=== PATIENT | female | born 1975 | race American Indian/Alaskan Native ===

== ENCOUNTER 2017-07-10 22:25 | Inpatient (IN) | payer OTHER ==
[2017-07-11 00:55] LABS: Basophils % (Auto) 0.6 % (0.0-1.8); Eosinophils % (Auto) 5.8 % (0.0-4.3); Hematocrit 30.9 % (30.3-42.9); Hemoglobin 9.8 gm/dl (10.1-14.3); Mean Corpuscular HGB Conc 32 % (30-34); Mean Corpuscular Volume 78 fl (79-97); Platelet Count 350 K/mm3 (140-440); Red Blood Count 3.94 M/mm3 (3.65-5.03); Red Cell Distribution Width 18.6 % (13.2-15.2); White Blood Count 7.6 K/mm3 (4.5-11.0)
[2017-07-11 01:01] LABS: Alanine Aminotransferase 13 units/L (7-56); Albumin 3.9 g/dL (3.9-5); Albumin/Globulin Ratio 1.3 %; Alkaline Phosphatase 73 units/L (35-129); Anion Gap 18 mmol/L; Blood Urea Nitrogen 8 mg/dL (7-17); Calcium 8.7 mg/dL (8.4-10.2); Carbon Dioxide 22 mmol/L (22-30); Chloride 104.4 mmol/L (98-107); Glucose 92 mg/dL (65-100); Sodium 140 mmol/L (137-145); Total Protein 6.9 g/dL (6.3-8.2)
[2017-07-11 01:02] LABS: Mean Corpuscular Hemoglobin 25 pg (28-32)
[2017-07-11 01:33] LABS: INR 0.94 (0.87-1.13)
[2017-07-11 02:02] LABS: Bacteria,Urine 1+ /HPF (Negative); Bilirubin,Urine NEG (Negative); Blood,Urine NEG (Negative); Ketones,Urine NEG (Negative); Leukocyte Esterase,Urine MOD (Negative); Mucus,Urine FEW /HPF; Nitrite,Urine NEG (Negative); Protein,Urine <15 mg/dL mg/dL (Negative)
--- NOTE | 2017-07-11 05:02 | Emergency Department Report ---
- General Chief complaint: Skin Rash Stated complaint: BODY RASH Time Seen by Provider: 07/11/17 04:17 Source: patient Mode of arrival: Ambulatory Limitations: No Limitations - History of Present Illness Initial comments: Patient here reports that he has a rash all over and was seen at [facility] 2 days ago and he gave him Bactrim but he has not taken Bactrim yet. He said he thinks the rash is from bug bites. Denies any difficulty breathing or shortness of breath. Denies any difficulty swallowing, wheezing or stridor. Denies any cough pain to rash side is 2 out of 10. He said the bottoms of his feet are turning purple and painful with some swelling. Patient said he is medical history syncope and anemia. Pt denies taking any medication that is new or using any new detergent. He said he was treated for cellulitis and allergic reaction at [facility] 2 days ago but he did not start taking medication. Said areas were erythema but now his skin is sloughing. Pt denies any fever or chills. MD complaint: rash, discoloration Onset/Timin -: days(s) Tetanus Up to Date: yes Location: generalized Severity: mild Severity scale (0 -10): 2 Quality: aching Consistency: constant Improves with: rest Worsens with: palpation, movement Context: witnessed insect bite Associated symptoms: athralgias Treatments Prior to Arrival: none - Related Data Allergies Allergy/AdvReac Type Severity Reaction Status Date / Time No Known Allergies Allergy Verified 07/10/17 23:36 Abscess Boil HPI - HPI Chief Complaint: Skin Rash Stated Complaint: BODY RASH Time Seen by Provider: 07/11/17 04:17 Allergies/Adverse Reactions: Allergies Allergy/AdvReac Type Severity Reaction Status Date / Time No Known Allergies Allergy Verified 07/10/17 23:36 ED Review of Systems ROS: Stated complaint: BODY RASH Other details as noted in HPI Comment: All other systems reviewed and negative Constitutional: denies: chills, fever, weakness Eyes: denies: vision change ENT: denies: throat pain, congestion Respiratory: no symptoms reported Cardiovascular: denies: chest pain, palpitations, edema, syncope Gastrointestinal: denies: abdominal pain, nausea, vomiting, diarrhea Musculoskeletal: joint swelling, arthralgia. denies: back pain, myalgia Skin: rash, pruritus Neurological: other (dizziness). denies: headache, numbness, paresthesias, confusion ED Past Medical Hx - Past Medical History Previous Medical History?: Yes Additional medical history: Syncope. Anemia - Surgical History Past Surgical History?: Yes Additional Surgical History: Left Shoulder Replacement - Family History Family history: hypertension - Social History Smoking Status: Current Every Day Smoker Substance Use Type: None ED Physical Exam - General Limitations: No Limitations General appearance: alert, in no apparent distress - Head Head exam: Present: atraumatic, normocephalic, normal inspection - Eye Eye exam: Present: normal appearance, PERRL, EOMI. Absent: periorbital swelling , periorbital tenderness Pupils: Present: normal accommodation - ENT ENT exam: Present: normal exam, normal orophraynx, mucous membranes moist, TM's normal bilaterally, normal external ear exam - Neck Neck exam: Present: normal inspection, full ROM. Absent: tenderness, meningismus, lymphadenopathy, thyromegaly - Respiratory Respiratory exam: Present: normal lung sounds bilaterally. Absent: respiratory distress, wheezes, stridor, chest wall tenderness, accessory muscle use - Cardiovascular Cardiovascular Exam: Present: regular rate, normal rhythm, normal heart sounds. Absent: systolic murmur, diastolic murmur - GI/Abdominal GI/Abdominal exam: Present: soft, normal bowel sounds. Absent: distended, tenderness, guarding, rebound, rigid - Extremities Exam Extremities exam: Present: full ROM, tenderness (both feet and upper extremity) , normal capillary refill, pedal edema, other (discolored and some areas purple some area erythema. Dorsal aspect of feet with mild swelling and tenderness. Pulses are 2+.). Absent: normal inspection, joint swelling, calf tenderness - Back Exam Back exam: Present: normal inspection, full ROM, rash noted. Absent: tenderness , CVA tenderness (R), CVA tenderness (L), muscle spasm, paraspinal tenderness, vertebral tenderness - Neurological Exam Neurological exam: Present: alert, oriented X3, normal gait, reflexes normal. Absent: motor sensory deficit - Psychiatric Psychiatric exam: Present: normal affect, normal mood - Skin Skin exam: Present: warm, rash, erythema. Absent: intact, normal color - Expanded Skin Exam Expanded Distribution of rash: generalized, other (both feet are discolored purple and redness. Tender to palpate plantar aspect.) Description of rash: Present: tenderness, erythematous, crusting, other ( patient with generalized rash mostly on his bilateral upper extremity but sparsely scattered to his lower extremity and torso. Rash is shedding. Areas are erythema with tenderness to palpate). Absent: discharge, fluctuant, indurated ED Course Vital Signs 07/11/17 00:43 Temperature 98.6 F Pulse Rate 88 Respiratory 18 Rate Blood Pressure 129/72 [Right] O2 Sat by Pulse 100 Oximetry - Reevaluation(s) Reevaluation #1: 07/11/17 05:[address] Miller attending physician in ED and he evaluated patient. Spoke with Dr. Mendiola who is the hospitalist and she will see the patient and determine if patient needs to be admitted Reevaluation #2: 07/11/17 05:[address] Mendiola. ED Medical Decision Making - Lab Data Result diagrams: 07/11/17 00:15 07/11/17 00:15 Lab Results 07/10/17 07/11/17 07/11/17 Range/Units Unknown 00:15 00:15 WBC 7.6 (4.5-11.0) K/mm3 RBC 3.94 (3.65-5.03) M/mm3 Hgb 9.8 L (10.1-14.3) gm/dl Hct 30.9 (30.3-42.9) % MCV 78 L (79-97) fl MCH 25 L (28-32) pg MCHC 32 (30-34) % RDW 18.6 H (13.2-15.2) % Plt Count 350 (140-440) K/mm3 Lymph % (Auto) 30.3 (13.4-35.0) % Lynn % (Auto) 9.6 H (0.0-7.3) % Eos % (Auto) 5.8 H (0.0-4.3) % Baso % (Auto) 0.6 (0.0-1.8) % Lymph # 2.3 (1.2-5.4) K/mm3 Lynn # 0.7 (0.0-0.8) K/mm3 Eos # 0.4 (0.0-0.4) K/mm3 Baso # 0.0 (0.0-0.1) K/mm3 Seg Neutrophils % 53.7 (40.0-70.0) % Seg Neutrophils # 4.1 (1.8-7.7) K/mm3 PT 12.5 (12.2-14.9) Sec. INR 0.94 (0.87-1.13) VBG pH (7.320-7.420) Sodium (137-145) mmol/L Potassium (3.6-5.0) mmol/L Chloride (98-107) mmol/L Carbon Dioxide (22-30) mmol/L Anion Gap mmol/L BUN (7-17) mg/dL Creatinine (0.7-1.2) mg/dL Estimated GFR ml/min BUN/Creatinine Ratio % Glucose (65-100) mg/dL Lactic Acid (0.7-2.0) mmol/L Calcium (8.4-10.2) mg/dL Total Bilirubin (0.1-1.2) mg/dL AST (5-40) units/L ALT (7-56) units/L Alkaline Phosphatase (35-129) units/L Total Protein (6.3-8.2) g/dL Albumin (3.9-5) g/dL Albumin/Globulin Ratio % HCG, Qual (Negative) Urine Color Yellow (Yellow) Urine Turbidity Clear (Clear) Urine pH 6.0 (5.0-7.0) Ur Specific [place] 1.023 (1.003-1.030) Urine Protein <15 mg/dl (Negative) mg/dL Urine Glucose (UA) Neg (Negative) mg/dL Urine Ketones Neg (Negative) mg/dL Urine Blood Neg (Negative) Urine Nitrite Neg (Negative) Urine Bilirubin Neg (Negative) Urine Urobilinogen 2.0 (<2.0) mg/dL Ur Leukocyte Esterase Mod (Negative) Urine WBC (Auto) 42.0 H (0.0-6.0) /HPF Urine RBC (Auto) 4.0 (0.0-6.0) /HPF U Epithel Cells (Auto) < 1.0 (0-13.0) /HPF Urine Bacteria (Auto) 1+ (Negative) /HPF Urine Mucus Few /HPF 07/11/17 07/11/17 07/11/17 Range/Units 00:15 00:15 00:15 WBC (4.5-11.0) K/mm3 RBC (3.65-5.03) M/mm3 Hgb (10.1-14.3) gm/dl Hct (30.3-42.9) % MCV (79-97) fl MCH (28-32) pg MCHC (30-34) % RDW (13.2-15.2) % Plt Count (140-440) K/mm3 Lymph % (Auto) (13.4-35.0) % Lynn % (Auto) (0.0-7.3) % Eos % (Auto) (0.0-4.3) % Baso % (Auto) (0.0-1.8) % Lymph # (1.2-5.4) K/mm3 Lynn # (0.0-0.8) K/mm3 Eos # (0.0-0.4) K/mm3 Baso # (0.0-0.1) K/mm3 Seg Neutrophils % (40.0-70.0) % Seg Neutrophils # (1.8-7.7) K/mm3 PT (12.2-14.9) Sec. INR (0.87-1.13) VBG pH (7.320-7.420) Sodium 140 (137-145) mmol/L Potassium 4.0 (3.6-5.0) mmol/L Chloride 104.4 (98-107) mmol/L Carbon Dioxide 22 (22-30) mmol/L Anion Gap 18 mmol/L BUN 8 (7-17) mg/dL Creatinine 0.5 L (0.7-1.2) mg/dL Estimated GFR > 60 ml/min BUN/Creatinine Ratio 16.00 % Glucose 92 (65-100) mg/dL Lactic Acid 1.00 (0.7-2.0) mmol/L Calcium 8.7 (8.4-10.2) mg/dL Total Bilirubin 0.20 (0.1-1.2) mg/dL AST 14 (5-40) units/L ALT 13 (7-56) units/L Alkaline Phosphatase 73 (35-129) units/L Total Protein 6.9 (6.3-8.2) g/dL Albumin 3.9 (3.9-5) g/dL Albumin/Globulin Ratio 1.3 % HCG, Qual Negative (Negative) Urine Color (Yellow) Urine Turbidity (Clear) Urine pH (5.0-7.0) Ur Specific [place] (1.003-1.030) Urine Protein (Negative) mg/dL Urine Glucose (UA) (Negative) mg/dL Urine Ketones (Negative) mg/dL Urine Blood (Negative) Urine Nitrite (Negative) Urine Bilirubin (Negative) Urine Urobilinogen (<2.0) mg/dL Ur Leukocyte Esterase (Negative) Urine WBC (Auto) (0.0-6.0) /HPF Urine RBC (Auto) (0.0-6.0) /HPF U Epithel Cells (Auto) (0-13.0) /HPF Urine Bacteria (Auto) (Negative) /HPF Urine Mucus /HPF 07/11/17 Range/Units 00:15 WBC (4.5-11.0) K/mm3 RBC (3.65-5.03) M/mm3 Hgb (10.1-14.3) gm/dl Hct (30.3-42.9) % MCV (79-97) fl MCH (28-32) pg MCHC (30-34) % RDW (13.2-15.2) % Plt Count (140-440) K/mm3 Lymph % (Auto) (13.4-35.0) % Lynn % (Auto) (0.0-7.3) % Eos % (Auto) (0.0-4.3) % Baso % (Auto) (0.0-1.8) % Lymph # (1.2-5.4) K/mm3 Lynn # (0.0-0.8) K/mm3 Eos # (0.0-0.4) K/mm3 Baso # (0.0-0.1) K/mm3 Seg Neutrophils % (40.0-70.0) % Seg Neutrophils # (1.8-7.7) K/mm3 PT (12.2-14.9) Sec. INR (0.87-1.13) VBG pH 7.403 (7.320-7.420) Sodium (137-145) mmol/L Potassium (3.6-5.0) mmol/L Chloride (98-107) mmol/L Carbon Dioxide (22-30) mmol/L Anion Gap mmol/L BUN (7-17) mg/dL Creatinine (0.7-1.2) mg/dL Estimated GFR ml/min BUN/Creatinine Ratio % Glucose (65-100) mg/dL Lactic Acid (0.7-2.0) mmol/L Calcium (8.4-10.2) mg/dL Total Bilirubin (0.1-1.2) mg/dL AST (5-40) units/L ALT (7-56) units/L Alkaline Phosphatase (35-129) units/L Total Protein (6.3-8.2) g/dL Albumin (3.9-5) g/dL Albumin/Globulin Ratio % HCG, Qual (Negative) Urine Color (Yellow) Urine Turbidity (Clear) Urine pH (5.0-7.0) Ur Specific [place] (1.003-1.030) Urine Protein (Negative) mg/dL Urine Glucose (UA) (Negative) mg/dL Urine Ketones (Negative) mg/dL Urine Blood (Negative) Urine Nitrite (Negative) Urine Bilirubin (Negative) Urine Urobilinogen (<2.0) mg/dL Ur Leukocyte Esterase (Negative) Urine WBC (Auto) (0.0-6.0) /HPF Urine RBC (Auto) (0.0-6.0) /HPF U Epithel Cells (Auto) (0-13.0) /HPF Urine Bacteria (Auto) (Negative) /HPF Urine Mucus /HPF Urine culture pending Critical care attestation.: If time is entered above; I have spent that time in minutes in the direct care of this critically ill patient, excluding procedure time. ED Disposition Clinical Impression: Cellulitis of skin, Arthralgia of multiple sites, Dizziness, Rash and nonspecific skin eruption, Discoloration of skin of foot, Acute cystitis without hematuria Anemia Qualifiers: Anemia type: unspecified type Qualified Code(s): D64.9 - Anemia, unspecified Disposition: OP ADMIT IP TO THIS HOSP Is pt being admited?: Yes Does the pt Need Aspirin: No Condition: Stable Referrals: PRIMARY CARE, [Primary Care Provider] - 3-5 Days
[2017-07-11] MEDS ORDERED: ZOFRAN IV PRN (06:00)
[2017-07-11] MEDS ORDERED: TYLENOL PO PRN (06:00)
--- NOTE | 2017-07-11 06:20 | History and Physical Report ---
History of Present Illness Date of examination: 07/11/17 History of present illness: 41-year-old woman with no medical problems comes to emergency room with complaining of acting my skin is infected. Patient states that she was camping and was bitten by spiders, although she did not see any spiders on her skin. Her skin became red with blisters on the left arm, she was able to see pus beneath the blisters. Stated that her skin started/and off. She was seen at [facility] and was given a steroid shot. She was given a prescription for Bactrim but perform assist told her not to take the antibiotic and to return to the emergency room Review Of Systems: Constitutional: no weight loss Ears, eyes, nose, mouth and throat: no nasal congestion, no nasal discharge, no sinus pressure, blurry vision, diplopia Neck: No neck pain or rigidity. Cardiovascular: chest pain, orthopnea, palpitations Respiratory: No shortness of breath, cough Gastrointestinal: abdominal pain, hematochezia Genitourinary : no dysuria, frequency , hematuria Musculoskeletal: no muscle ache Integumentary: no pruritis Neurological: no parathesias, focal weakness Endocrine: no cold or heat intolerance, no polyuria or polydipsia Hematologic/Lymphatic: no easy bruising, no easy bleeding, no gland swelling Allergic/Immunologic: no urticaria, no angioedema. PAST MEDICAL HISTORY: None PAST SURGICAL HISTORY:None FAMILY HISTORY: High blood pressure SOCIAL HISTORY: Denies all call, tobacco, drugs Medications and Allergies Allergies Allergy/AdvReac Type Severity Reaction Status Date / Time No Known Allergies Allergy Verified 07/10/17 23:36 Home Medications Medication Instructions Recorded Confirmed Last Taken Type Acetaminophen [Acetaminophen TAB] 325 mg PO Q4H PRN #30 tablet 07/13/17 Unknown Rx Ammonium Lactate [Lac-Hydrin 1 applic TP BID #5 day 07/13/17 Unknown Rx Lotion] Nitrofurantoin [place]/M-Cryst 100 mg PO Q12HR #5 day 07/13/17 Unknown Rx [Macrobid CAP] Active Meds: Active Medications Acetaminophen (Tylenol) 650 mg PO Q4H PRN PRN Reason: Pain MILD(1-3)/Fever >100.5/NOVA Enoxaparin Sodium (Lovenox) 40 mg SUB-Q QDAY KAMALJIT Ondansetron HCl (Zofran) 4 mg IV Q8H PRN PRN Reason: N/V unrelieved by Reglan Exam - Physical Exam Narrative exam: Gen. appearance: Patient lying in bed in no acute distress HEENT: Normocephalic/atraumatic, pupils equal round reactive to light, extra alkaline movement intact, no scleral icterus, no JVD or thyromegaly or nodule, neck is supple, mucous membrane moist, no erythema or exudate Heart: S1-S2, regular rate and rhythm Lungs: Clear to auscultation bilateral breathing comfortable Abdomen: Positive bowel sounds, nontender, nondistended, no organomegaly Extremities: No edema, cyanosis, clubbing Neuro:: Oriented 3 , cranial nerves II-12 intact, speech, motor intact Skin: Thick skin on the back,upper extremitIES,sloughing off of the skin,left> right, + burrows. Thickened skin on the feet, soles or reddish purplish No purulent discharge, warm dry - Constitutional Vitals: Temp Pulse Resp BP Pulse Ox 98.6 F 88 18 129/72 100 07/11/17 00:43 07/11/17 00:43 07/11/17 00:43 07/11/17 00:43 07/11/17 00:43 Results - Labs CBC & Chem 7: 07/11/17 Unknown 07/11/17 00:15 Labs: Abnormal lab results 07/10/17 07/11/17 07/11/17 Range/Units Unknown 00:15 00:15 Hgb 9.8 L (10.1-14.3) gm/dl MCV 78 L (79-97) fl MCH 25 L (28-32) pg RDW 18.6 H (13.2-15.2) % [place] % (Auto) 9.6 H (0.0-7.3) % Eos % (Auto) 5.8 H (0.0-4.3) % Creatinine 0.5 L (0.7-1.2) mg/dL Urine WBC (Auto) 42.0 H (0.0-6.0) /HPF Assessment and Plan Assessment Skin abnormality UTI Plan Admit to medicine Consult infectious disease, hold further antibiotics for now Obtain urine culture, blood culture DVT prophylaxis
[2017-07-11 07:10] LABS: Hematocrit 33.7 % (30.3-42.9); Hemoglobin 10.6 gm/dl (10.1-14.3)
--- NOTE | 2017-07-11 07:30 | Admit Criteria Form ---
Admission Criteria Documentation: CELLULITIS Clinical Indications for Admission to Inpatient Care ([place]/check or initial the applicable condition/criteria) Admission is indicated for ANY ONE of the following(1)(2)(3)(4)(5): [ ]I. Limb-threatening infection [ ]II. High-risk comorbid condition as indicated by ANY ONE of the following: [ ]a) Uncontrolled diabetes (eg, HbA1c greater than 10% (0.1)) [ ]b) Cirrhosis [ ]c) Neutropenia [ ]d) Asplenia(12) [ ]e) Immunosuppression [ ]f) Symptomatic heart failure [ ]III. Failure of outpatient therapy as indicated by ALL of the following(6): [ ]a) Progression or no improvement after adequate trial (minimum of 48 hours, with longer period for stable lower extremity infection) [ ]b) Adequate antibiotic regimen as indicated by use of ANY ONE of the following: [ ]i) First-generation cephalosporin (e.g., cephalexin) [ ]ii) Antistaphylococcal penicillin (e.g., dicloxacillin) [ ]iii) Penicillin-allergic patient regimen (clindamycin, extended-spectrum fluoroquinolone, or doxycycline) [ ]iv) Resistant organism (eg, methicillin-resistant Staphylococcus aureus) regimen (7)(8) [ ]c) Outpatient intravenous therapy regimen is not appropriate due to ANY ONE of the following. (9)(10) [ ]i) It was tried and was not successful (eg, progression of infection). [ ]ii) It is not available or cannot be arranged in a clinically appropriate time frame (e.g., the next day). [ ]iii) Clinical presentation (eg, acuity of infection, rapidity of progression, confirmed or suspected bacteremia) is judged to require ALL of the following: [ ]1) Immediate initiation of intravenous therapy ( eg, cannot wait for next day) [ ]2) Intensity of patient monitoring and observation (eg, vital sign measurement, checks for infection progression) that cannot be provided at other than inpatient level of care [ ]IV. Altered Mental status that is severe or persistent [ ]V. Bacteremia [ ]. Hemodynamic instability [ ]VII. Suspected necrotizing soft tissue infection (e.g., gas in tissue)(13)( 14)(15) [ ]VIII. Orbital infection (16)(17) [ ]XI. Associated surgical procedure (e.g., abscess drainage, debridement) not amenable to outpatient, emergency department, or observation care [ ]X. Cutaneous gangrene(19) [ ]XII. High fever (temperature greater than 39.5 degrees C (103.1 degrees F) (oral)) not responsive to outpatient, emergency department, or observation care therapy(20)(21) [X]XIII. Inpatient admission required [A]rather than observation care (Also use Cellulitis: Observation Care as appropriate) because of ANY ONE of the following(22)(23): [ ]a) Periorbital or perineal infection that is severe or worsening [ ]b) Severe pain requiring acute inpatient management [ ]b) IV fluid to replace significant ongoing (e.g., for over 24 hours) losses (greater than 3 L/m2 per day) [ ]b) Compartment syndrome monitoring (24) [ ]b) Strict or protective (eg, laminar flow) isolation) [ ]b) Urgent debridement or skin grafting [ ]b) Bone or joint debridement [ ]b) Immediate inpatient surgery [X]b) Other condition, treatment, or monitoring requiring inpatient admission Extended stay beyond goal length of stay may be needed for(18)(36)(37)(38)(39)( 40)(41) [ ]a) Necrotizing soft tissue infection or fasciitis(13)(42) [ ]b) Gram-negative infection [ ]c) Methicillin-resistant Staphylococcal aureus (MRSA) infection(7)(43) [ ]d) Peripheral venous insufficiency with cellulitis [ ]e) Extensive edema [ ]f) Sepsis or continued Hemodynamic instability [ ]g) Continued high fever or mental status change [ ]h) Bacteremia(43) [ ]i) Active serious comorbid conditions ( eg, heart failure, renal insufficiency) The original [employer] content created by [employer] has been revised. The portions of the content which have been revised are identified through the use of italic text or in bold, and [facility] has neither reviewed nor approved the modified material. All other unmodified content is copyright [facility] [employer] Please see references footnoted in the original [facility] edition 2017 Admission Criteria Met: Yes
[2017-07-11] MEDS: LOVENOX SUB-Q SCH (10:05)
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
[2017-07-11 15:12] LABS: Hematocrit 33.6 % (30.3-42.9); Hemoglobin 10.7 gm/dl (10.1-14.3)
[2017-07-11] MEDS: PROTONIX PO SCH (16:49)
[2017-07-11] MEDS: MACROBID PO SCH (22:50)
[2017-07-12] MEDS: MACROBID PO SCH ×2 (10:25→23:42)
[2017-07-12] MEDS: PROTONIX PO SCH (10:25)
[2017-07-12] MEDS: LOVENOX SUB-Q SCH (10:25)
--- NOTE | 2017-07-12 12:00 | Progress Note ---
Assessment and Plan Assessment: 1) Left shoulder/back/soles rash: likely atypical spider envenomation. There is no evidence of cellulitis or abscess currently. It is unclear if this explains also the soles involvements. RPR neg. CRP - normal. 2) UTI-mild. Urine cx + 10-100K mixed bacteremia Plan: -No antibiotic therapy indicated for spider bite -f/u RAHEL -needs tetanus prophylaxis -wound care consult -f/u blood and urine cx -continue nitrofurantoin for mild UTI total 5 days - will sing off Thank you Dr Oconnell for your consultation, will follow up with you. Trista Alcantara MD Infectious Diseases Specialist [facility] ([facility]) M [phone] O [phone] Subjective Date of service: 07/12/17 Principal diagnosis: rash Interval history: Feels better, skin is clearing she took a bath and lots of skin exfoliated. NO fever. Current Antimicrobials: 07/11 nitrofurantoin Previous Antimicrobials: Microbiology: Blood cultures: 07/11 ngtd Urine cultures: 07/10 10-100K mixed sp Respiratory cultures: Wound cultures: Stool cultures: Other: Objective - Exam Narrative Exam: General appearance: Alert in NAD, conversant Eyes: anicteric sclerae, moist conjunctivae ; PERRLA HENT: Atraumatic; oropharynx clear with moist mucous membranes and no mucosal ulcerations/no oral thrush; normal hard and soft palate. Normal external ears. Neck: Trachea midline; supple, no thyromegaly or lymphadenopathy Lungs: +rico wheezing CV: RRR, no murmurs Abdomen: Soft, non-tender; no masses or hepatosplenomegaly Extremities: No peripheral edema or extremity lymphadenopathy Skin: left anterior and posterior shoulder skin peeling and ant shoulder indurated area with minimal serous drainage. +left upper back and mid back skin peeling. Rico sole hyperpigmentation and some skin peeling. Psych: Appropriate affect, alert and oriented to person, place and time. Neuro: alert and oriented x 3. Moving all extermities Lines: No CVL / PICC - Constitutional Vitals: Vital Signs Temp Pulse Resp BP Pulse Ox 98.6 F 56 L 16 94/52 100 07/11/17 22:56 07/11/17 22:56 07/11/17 22:56 07/11/17 22:56 07/11/17 22:56 Temperature -Last 24 Hours Temperature 98.6 F Temperature 98.9 F - Labs CBC & Chem 7: 07/11/17 Unknown 07/11/17 00:15
[2017-07-12] MEDS ORDERED: TENIVAC IM ONE (16:00)
--- NOTE | 2017-07-12 17:30 | Progress Note ---
Assessment and Plan Assessment and plan: 1. Shoulder/back/cells rash - possible secondary to spider envenomation; no cellulitis or abscess formation. CRP and RPR negative. Local care/cream 2. UTI - 5 day course of nitrofurantoin 3. Microcytic anemia - no bleeding; obtain iron studies; outpatient GI follow- up for EGD/colonoscopy 4. DVT prophylaxis 5. Dispo - ? Homeless; with possible need case management assistance History Interval history: No specific complaints except of rash with skin sloughing Hospitalist Physical - Constitutional Vitals: Temp Pulse Resp BP Pulse Ox 98.5 F 82 20 116/58 100 07/12/17 16:00 07/12/17 16:00 07/12/17 16:00 07/12/17 16:00 07/11/17 22:56 General appearance: Present: no acute distress, obese - EENT Eyes: Present: PERRL, EOM intact - Neck Neck: Present: supple, normal ROM. Absent: masses or JVD - Respiratory Respiratory effort: normal Respiratory: bilateral: CTA, negative: rhonchi, wheezing - Cardiovascular Rhythm: regular Heart Sounds: Present: S1 & S2. Absent: systolic murmur - Extremities Extremities: no ischemia - Abdominal General gastrointestinal: soft, non-tender, non-distended, normal bowel sounds - Integumentary Integumentary: Present: rash (back, shoulders, upper extremities, soles - rash with sloughing skin) - Psychiatric Psychiatric: cooperative - Neurologic Neurologic: CNII-XII intact, no focal deficits Results - Labs CBC & Chem 7: 07/11/17 Unknown 07/11/17 00:15 Labs: Laboratory Last Values WBC 7.6 K/mm3 (4.5-11.0) 07/11/17 00:15 RBC 3.94 M/mm3 (3.65-5.03) 07/11/17 00:15 Hgb 10.6 gm/dl (10.1-14.3) 07/11/17 Unknown Hct 33.7 % (30.3-42.9) 07/11/17 Unknown MCV 78 fl (79-97) L 07/11/17 00:15 MCH 25 pg (28-32) L 07/11/17 00:15 MCHC 32 % (30-34) 07/11/17 00:15 RDW 18.6 % (13.2-15.2) H 07/11/17 00:15 Plt Count 350 K/mm3 (140-440) 07/11/17 00:15 Lymph % (Auto) 30.3 % (13.4-35.0) 07/11/17 00:15 [place] % (Auto) 9.6 % (0.0-7.3) H 07/11/17 00:15 Eos % (Auto) 5.8 % (0.0-4.3) H 07/11/17 00:15 Baso % (Auto) 0.6 % (0.0-1.8) 07/11/17 00:15 Lymph # 2.3 K/mm3 (1.2-5.4) 07/11/17 00:15 [place] # 0.7 K/mm3 (0.0-0.8) 07/11/17 00:15 Eos # 0.4 K/mm3 (0.0-0.4) 07/11/17 00:15 Baso # 0.0 K/mm3 (0.0-0.1) 07/11/17 00:15 Seg Neutrophils % 53.7 % (40.0-70.0) 07/11/17 00:15 Seg Neutrophils # 4.1 K/mm3 (1.8-7.7) 07/11/17 00:15 PT 12.5 Sec. (12.2-14.9) 07/11/17 00:15 INR 0.94 (0.87-1.13) 07/11/17 00:15 VBG pH 7.403 (7.320-7.420) 07/11/17 00:15 Sodium 140 mmol/L (137-145) 07/11/17 00:15 Potassium 4.0 mmol/L (3.6-5.0) 07/11/17 00:15 Chloride 104.4 mmol/L (98-107) 07/11/17 00:15 Carbon Dioxide 22 mmol/L (22-30) 07/11/17 00:15 Anion Gap 18 mmol/L 07/11/17 00:15 BUN 8 mg/dL (7-17) 07/11/17 00:15 Creatinine 0.5 mg/dL (0.7-1.2) L 07/11/17 00:15 Estimated GFR > 60 ml/min 07/11/17 00:15 BUN/Creatinine Ratio 16.00 % 07/11/17 00:15 Glucose 92 mg/dL (65-100) 07/11/17 00:15 Lactic Acid 1.10 mmol/L (0.7-2.0) 07/11/17 04:58 Calcium 8.7 mg/dL (8.4-10.2) 07/11/17 00:15 Total Bilirubin 0.20 mg/dL (0.1-1.2) 07/11/17 00:15 AST 14 units/L (5-40) 07/11/17 00:15 ALT 13 units/L (7-56) 07/11/17 00:15 Alkaline Phosphatase 73 units/L (35-129) 07/11/17 00:15 C-Reactive Protein 0.10 mg/dL (0.00-1.30) 07/11/17 14:32 Total Protein 6.9 g/dL (6.3-8.2) 07/11/17 00:15 Albumin 3.9 g/dL (3.9-5) 07/11/17 00:15 Albumin/Globulin Ratio 1.3 % 07/11/17 00:15 HCG, Qual Negative (Negative) 07/11/17 00:15 Urine Color Yellow (Yellow) 07/10/17 Unknown Urine Turbidity Clear (Clear) 07/10/17 Unknown Urine pH 6.0 (5.0-7.0) 07/10/17 Unknown Ur Specific [place] 1.023 (1.003-1.030) 07/10/17 Unknown Urine Protein <15 mg/dl mg/dL (Negative) 07/10/17 Unknown Urine Glucose (UA) Neg mg/dL (Negative) 07/10/17 Unknown Urine Ketones Neg mg/dL (Negative) 07/10/17 Unknown Urine Blood Neg (Negative) 07/10/17 Unknown Urine Nitrite Neg (Negative) 07/10/17 Unknown Urine Bilirubin Neg (Negative) 07/10/17 Unknown Urine Urobilinogen 2.0 mg/dL (<2.0) 07/10/17 Unknown Ur Leukocyte Esterase Mod (Negative) 07/10/17 Unknown Urine WBC (Auto) 42.0 /HPF (0.0-6.0) H 07/10/17 Unknown Urine RBC (Auto) 4.0 /HPF (0.0-6.0) 07/10/17 Unknown U Epithel Cells (Auto) < 1.0 /HPF (0-13.0) 07/10/17 Unknown Urine Bacteria (Auto) 1+ /HPF (Negative) 07/10/17 Unknown Urine Mucus Few /HPF 07/10/17 Unknown RPR Nonreactive (Nonreactive) 07/11/17 07:37
[2017-07-12] MEDS: LAC-HYDRIN TP SCH ×2 (17:48→23:42)
[2017-07-13 02:22] LABS: Iron 29 ug/dL (37-170); Total Iron Binding Capacity 436 mcg/dL (250-450)
[2017-07-13] MEDS: MACROBID PO SCH ×2 (10:34→21:35)
[2017-07-13] MEDS: LAC-HYDRIN TP SCH ×2 (10:34→21:35)
[2017-07-13] MEDS: PROTONIX PO SCH (10:34)
[2017-07-13] MEDS: LOVENOX SUB-Q SCH (10:34)
--- NOTE | 2017-07-13 14:29 | Discharge Summary ---
Providers - Providers Date of Admission: 07/11/17 06:00 Date of discharge: 07/13/17 Attending physician: CHALINO RANDOLPH 07/11/17 06:14 Consult to Physician [CONS] Routine Consulting Provider: MANJINDER MARIA Reason For Exam: black stool Notified:: laboratory secretary pl call 07/12/17 17:21 Consult to Wound/ET Nurse [CONS] Urgent Reason For Exam: wound eval for abnormal skin rash Primary care physician: [employer]ENTATIVE Hospitalization Condition: Stable Hospital course: 1. Shoulder/back/cells rash - possible secondary to spider envenomation; no cellulitis or abscess formation. CRP and RPR negative. Local care/cream 2. UTI - nitrofurantoin 3. Microcytic anemia - no bleeding; obtain iron studies; outpatient GI follow- up for EGD/colonoscopy 4. DVT prophylaxis Disposition: DC-01 TO HOME OR SELFCARE Time spent for discharge: 32 minutes Core Measure Documentation - Palliative Care Palliative Care/ Comfort Measures: Not Applicable - Core Measures Any of the following diagnoses?: none - VTE Discharge Requirements Deep Vein Thrombosis/Pulmonary Embolism Present on Admission: No Has pt received <5 days of overlap therapy or INR<2.0: No Anticoagulant overlap therapy prescribed at discharge: No Contraindication No Overlap Therapy order at DC: Not Indicated Exam - Physical Exam Narrative exam: GEN: WDWN, NAD, AWAKE, ALERT, ORIENTATED MSK: FROM x 4 Neuro: CN 2-12 grossly intact, no new focal deficits Psych: calm, will not get out of the bathtub after multiple request, I have been to her room on 4 different occasion. - Constitutional Vitals: Temp Pulse Resp BP Pulse Ox 99.0 F 70 20 132/68 98 07/13/17 08:15 07/13/17 08:15 07/13/17 08:15 07/13/17 08:15 07/13/17 08:15 Plan Activity: other (no strenous activity until cleared by pcp) Diet: regular Follow up with: PRIMARY CARE, [Primary Care Provider] - 3-5 Days Prescriptions: Ammonium Lactate [Lac-Hydrin Lotion] 1 applic TP BID #5 day Nitrofurantoin [place]/M-Cryst [Macrobid CAP] 100 mg PO Q12HR #5 day
--- NOTE | 2017-07-14 07:57 | Progress Note ---
Assessment and Plan Assessment and plan: 1. Shoulder/back/cells rash - possible secondary to spider envenomation; no cellulitis or abscess formation. CRP and RPR negative. Local care/cream, she was given referral to [employer] by ED physician at [place], Dr. Sean Haynes or Dr. Willy Miner 2. UTI - nitrofurantoin 3. Microcytic anemia - no bleeding; obtain iron studies; outpatient GI follow- up for EGD/colonoscopy 4. DVT prophylaxis History Interval history: Patient was seen and examined. Follow-up on current diagnosis/skin rash. Overnight uneventful. Patient denies any chest pain, shortness breath, nausea/ vomiting or severe headaches. Imaging, nursing note, chart, labs and old chart reviewed. Discussed with patient. Hospitalist Physical - Physical exam Narrative exam: Came back the fifth time to reevaluate patient GEN: WDWN, NAD, AWAKE, ALERT, ORIENTATED x 3 HEENT: NCAT, EOMI, PERRL, OP Clear NECK: supple, no adenopathy, no thyromegaly, no JVD CVS/HEART: RRR, NORMAL S1S2, NO JVD, pulses present bilaterally CHEST/LUNGS: CTA B, Symmetrical chest expansion, good air entry bilaterally GI/Abdomen: soft, NTND, good bowel sounds, no guarding or rebound /Bladder: no suprapubic tenderness, no CVA or paraspinal tenderness MSK: FROM x 4 Neuro: CN 2-12 grossly intact, no new focal deficits Psych: calm, will not get out of the bathtub after multiple request, I have been to her room on 4 different occasion. Patient is dress in a suit an tie, she has multiple outfits enclose everywhere in her, disorganized. She is fixated on a spider bite. She points to the back for neck which I don't see a spider bite. She has evidence of healing excoliating skin abnormalities all over her body, that looks like there are healing. No Erythema, redness or signs of infection. She denies any suicidal or homicidal homicidal ideation - Constitutional Vitals: Temp Pulse Resp BP Pulse Ox 98.8 F 78 18 121/75 98 07/13/17 16:36 07/13/17 22:00 07/13/17 22:00 07/13/17 16:36 07/13/17 16:36 General appearance: Present: no acute distress, obese Results - Labs CBC & Chem 7: 07/11/17 Unknown 07/11/17 00:15 Labs: Laboratory Last Values WBC 7.6 K/mm3 (4.5-11.0) 07/11/17 00:15 RBC 3.94 M/mm3 (3.65-5.03) 07/11/17 00:15 Hgb 10.6 gm/dl (10.1-14.3) 07/11/17 Unknown Hct 33.7 % (30.3-42.9) 07/11/17 Unknown MCV 78 fl (79-97) L 07/11/17 00:15 MCH 25 pg (28-32) L 07/11/17 00:15 MCHC 32 % (30-34) 07/11/17 00:15 RDW 18.6 % (13.2-15.2) H 07/11/17 00:15 Plt Count 350 K/mm3 (140-440) 07/11/17 00:15 Lymph % (Auto) 30.3 % (13.4-35.0) 07/11/17 00:15 [place] % (Auto) 9.6 % (0.0-7.3) H 07/11/17 00:15 Eos % (Auto) 5.8 % (0.0-4.3) H 07/11/17 00:15 Baso % (Auto) 0.6 % (0.0-1.8) 07/11/17 00:15 Lymph # 2.3 K/mm3 (1.2-5.4) 07/11/17 00:15 [place] # 0.7 K/mm3 (0.0-0.8) 07/11/17 00:15 Eos # 0.4 K/mm3 (0.0-0.4) 07/11/17 00:15 Baso # 0.0 K/mm3 (0.0-0.1) 07/11/17 00:15 Seg Neutrophils % 53.7 % (40.0-70.0) 07/11/17 00:15 Seg Neutrophils # 4.1 K/mm3 (1.8-7.7) 07/11/17 00:15 PT 12.5 Sec. (12.2-14.9) 07/11/17 00:15 INR 0.94 (0.87-1.13) 07/11/17 00:15 VBG pH 7.403 (7.320-7.420) 07/11/17 00:15 Sodium 140 mmol/L (137-145) 07/11/17 00:15 Potassium 4.0 mmol/L (3.6-5.0) 07/11/17 00:15 Chloride 104.4 mmol/L (98-107) 07/11/17 00:15 Carbon Dioxide 22 mmol/L (22-30) 07/11/17 00:15 Anion Gap 18 mmol/L 07/11/17 00:15 BUN 8 mg/dL (7-17) 07/11/17 00:15 Creatinine 0.5 mg/dL (0.7-1.2) L 07/11/17 00:15 Estimated GFR > 60 ml/min 07/11/17 00:15 BUN/Creatinine Ratio 16.00 % 07/11/17 00:15 Glucose 92 mg/dL (65-100) 07/11/17 00:15 Lactic Acid 1.10 mmol/L (0.7-2.0) 07/11/17 04:58 Calcium 8.7 mg/dL (8.4-10.2) 07/11/17 00:15 Iron 29 ug/dL (37-170) L 07/12/17 22:53 TIBC 436 mcg/dL (250-450) 07/12/17 22:53 Total Bilirubin 0.20 mg/dL (0.1-1.2) 07/11/17 00:15 AST 14 units/L (5-40) 07/11/17 00:15 ALT 13 units/L (7-56) 07/11/17 00:15 Alkaline Phosphatase 73 units/L (35-129) 07/11/17 00:15 C-Reactive Protein 0.10 mg/dL (0.00-1.30) 07/11/17 14:32 Total Protein 6.9 g/dL (6.3-8.2) 07/11/17 00:15 Albumin 3.9 g/dL (3.9-5) 07/11/17 00:15 Albumin/Globulin Ratio 1.3 % 07/11/17 00:15 HCG, Qual Negative (Negative) 07/11/17 00:15 Urine Color Yellow (Yellow) 07/10/17 Unknown Urine Turbidity Clear (Clear) 07/10/17 Unknown Urine pH 6.0 (5.0-7.0) 07/10/17 Unknown Ur Specific [place] 1.023 (1.003-1.030) 07/10/17 Unknown Urine Protein <15 mg/dl mg/dL (Negative) 07/10/17 Unknown Urine Glucose (UA) Neg mg/dL (Negative) 07/10/17 Unknown Urine Ketones Neg mg/dL (Negative) 07/10/17 Unknown Urine Blood Neg (Negative) 07/10/17 Unknown Urine Nitrite Neg (Negative) 07/10/17 Unknown Urine Bilirubin Neg (Negative) 07/10/17 Unknown Urine Urobilinogen 2.0 mg/dL (<2.0) 07/10/17 Unknown Ur Leukocyte Esterase Mod (Negative) 07/10/17 Unknown Urine WBC (Auto) 42.0 /HPF (0.0-6.0) H 07/10/17 Unknown Urine RBC (Auto) 4.0 /HPF (0.0-6.0) 07/10/17 Unknown U Epithel Cells (Auto) < 1.0 /HPF (0-13.0) 07/10/17 Unknown Urine Bacteria (Auto) 1+ /HPF (Negative) 07/10/17 Unknown Urine Mucus Few /HPF 07/10/17 Unknown RPR Nonreactive (Nonreactive) 07/11/17 07:37
[2017-07-14 10:17] VITALS: BP 125/89
[2017-07-14] MEDS: MACROBID PO SCH (10:22)
[2017-07-14] MEDS: PROTONIX PO SCH (10:22)
[2017-07-14] MEDS: LAC-HYDRIN TP SCH (10:23)
--- NOTE | 2017-07-14 12:43 | Event Note ---
Date: 07/14/17 Pt refused to be leave yesterday. She will be leaving today. I believe patient is homeless, d/w case management
== END 2017-07-14 12:15 | disposition home or self-care (01) | DRG 918 ==
LOC: EDSEX → ED 22:25 → 3A 07-11 06:00
PROVIDERS: ADMIT Internal Medicine; ATTEND Internal Medicine
DX: T63.391A Toxic effect of venom of other spider, accidental (unintentional), initial encounter (principal); N39.0 Urinary tract infection, site not specified; L98.9 Disorder of the skin and subcutaneous tissue, unspecified; D64.9 Anemia, unspecified; M25.50 Pain in unspecified joint; Y92.89 Other specified places as the place of occurrence of the external cause
CPT/HCPCS: 36415; 80053; 81001; 82140; 82805; 83550; 84703; 85014; 85018; 85025; 85610; 86038; 86140; 86592; 87040; 87086; 90714; J1650

== ENCOUNTER 2018-01-14 09:00 | Emergency (ER) | payer SELFPAY ==
[2018-01-14 09:06] VITALS: BP 127/58
== END 2018-01-14 10:40 | disposition left against medical advice (07) ==
LOC: ED 09:00
DX: I74.9 Embolism and thrombosis of unspecified artery (principal); Z53.21 Procedure and treatment not carried out due to patient leaving prior to being seen by health care provider

== ENCOUNTER 2018-11-16 04:17 | Emergency (ER) | payer SELFPAY ==
[2018-11-16 05:51] LABS: Hematocrit 31.4 % (30.3-42.9); Mean Corpuscular HGB Conc 32 % (30-34); Mean Corpuscular Volume 80 fl (79-97); Platelet Count 319 K/mm3 (140-440); Red Blood Count 3.94 M/mm3 (3.65-5.03)
[2018-11-16 06:11] LABS: BUN/Creatinine Ratio 22; Blood Urea Nitrogen 11 mg/dL (7-17); Calcium 8.9 mg/dL (8.4-10.2); Hemolysis Index 4
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
--- NOTE | 2018-11-16 06:33 | XRay Report ---
FINAL REPORT EXAM: XR CHEST ROUTINE 2V HISTORY: cp TECHNIQUE: PA and lateral chest radiographs PRIORS: None. FINDINGS: No mediastinal shift. Cardiac silhouette is not enlarged. No pneumothorax, effusion, or focal pulmon iram opacity. No acute skeletal finding. Left shoulder arthroplasty. IMPRESSION: No focal pulmonary opacity.
[2018-11-16] MEDS ORDERED: NACL 0.9% 500 ML 500 ML IV ONE (07:17)
[2018-11-16 08:28] LABS: Basophils % (Manual) 0 % (0.0-1.8); Total Cells Counted 100
[2018-11-16 08:29] LABS: Anisocytosis 1+; Ovalocytes Few; Poikilocytosis 1+
[2018-11-16 08:30] LABS: Hypochromasia 1+; Platelet Estimate Consistent w Auto
[2018-11-16] MEDS ORDERED: LOVENOX SUB-Q ONE (08:31)
--- NOTE | 2018-11-16 10:04 | Cat Scan Report ---
CTA CHEST: HISTORY: chest pain. COMPARISON: none. TECHNIQUE: Helical CT in 1.25mm intervals following IV contrast. Pulmonary embolus protocol. Sagittal and coronal reformatted images. Rotational MIP images. FINDINGS: Contrast bolus is satisfactory. No pulmonary embolus is identified. Thyroid gland: Normal. Tracheobronchial tree: Normal. Esophagus: Normal. Heart: Normal. Pericardium: Normal. Mediastinum: Normal. Lung Steward: normal. Pleural Spaces: Normal. Musculoskeletal: Normal. IMPRESSION: No evidence for pulmonary embolus. Unremarkable CT chest with contrast.
[2018-11-16 10:34] LABS: Bilirubin,Urine NEG (Negative); Blood,Urine NEG (Negative); Color,Urine Yellow (Yellow); Mucus,Urine FEW /HPF; Protein,Urine <15 mg/dL mg/dL (Negative); Urobilinogen,Urine < 2.0 mg/dL (<2.0); WBC,Urine < 1.0 /HPF (0.0-6.0)
[2018-11-16 10:40] LABS: Amphetamine Screen,Urine PRESUMPTIVE NEGATIVE; Benzodiazepines Screen,Urine PRESUMPTIVE NEGATIVE; Cannabinoid Screen,Urine PRESUMPTIVE NEGATIVE; Cocaine Screen,Urine PRESUMPTIVE NEGATIVE; Methadone Screen,Urine PRESUMPTIVE NEGATIVE; Opiate Screen,Urine PRESUMPTIVE NEGATIVE
[2018-11-16] MEDS ORDERED: ZOFRAN ODT PO PRN (10:49)
[2018-11-16] MEDS ORDERED: TYLENOL PO PRN (10:49)
[2018-11-16] MEDS ORDERED: HALDOL IM PRN (10:49)
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
[2018-11-16] MEDS: BABY ASPIRIN PO SCH (12:21)
[2018-11-16] MEDS ORDERED: LAC-HYDRIN TP ONE (12:30)
[2018-11-16] MEDS: LAC-HYDRIN TP SCH ×2 (13:00→23:19)
[2018-11-17] MEDS: LAC-HYDRIN TP SCH ×2 (10:38→22:05)
[2018-11-17] MEDS: BABY ASPIRIN PO SCH (10:38)
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
[2018-11-18] MEDS: BABY ASPIRIN PO SCH (11:25)
[2018-11-18] MEDS: LAC-HYDRIN TP SCH ×2 (11:27→23:30)
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
[2018-11-19] MEDS: LAC-HYDRIN TP SCH ×2 (09:38→21:59)
[2018-11-19] MEDS: BABY ASPIRIN PO SCH (09:38)
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
[2018-11-20] MEDS: LAC-HYDRIN TP SCH ×2 (11:00→22:04)
[2018-11-20] MEDS: BABY ASPIRIN PO SCH (11:00)
[2018-11-21] MEDS: BABY ASPIRIN PO SCH (09:52)
[2018-11-21] MEDS: ATIVAN IM PRN (09:52)
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
[2018-11-21] MEDS: LAC-HYDRIN TP SCH (22:00)
[2018-11-22] MEDS: LAC-HYDRIN TP SCH ×2 (10:14→22:36)
[2018-11-22] MEDS: BABY ASPIRIN PO SCH (11:00)
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
--- NOTE | 2018-11-23 12:20 | Emergency Department Report ---
Blank Doc - Documentation Documentation: Upon review of medical record, my colleague order a PICC line placement to obt ain CT angiogram. PICC line may stay in place for the remainder of ER treatment. Patient does not urgently need any IV medications.
--- NOTE | 2018-11-23 13:12 | Progress Note ---
Subjective - Reason for Consult Consult date: 11/23/18 Reason for consult: Psychiatry Follow-up - Chief Complaint Chief complaint: "I should be able to leave" Patient is a 43-year-old AA female was recently admitted to this hospital and had an extensive cardiac workup. The patient left AMA and returned to ER within 24 hours. Per the record, the patient presents with bizarre behavior. Today the patient is calm and cooperative during the assessment. She is adamant that she is a "federal witness." She stated that she corresponds with an legal investigator Dionte Mobley from [employer] [facility] [employer] reference a criminal case. She continue to state that a employee at [facility] is trying to take evidence that she need. She denies SI/HI's and AVH's. She denies any side effects of her medication. Mental Status Exam - Vital signs Last Vital Signs Temp 98.3 F 11/23/18 08:13 Pulse 84 11/23/18 08:13 Resp 18 11/23/18 05:28 BP 160/92 11/23/18 08:13 Pulse Ox 100 11/23/18 08:13 - Exam Narrative exam: MSE: Appearance: calm Behavior: regular eye contact Speech: regular rate and tone Mood: "okay" Affect: congruent to mood Thought Process: tangential Thought Content: denies SI/HI's and AVH's, delusional, paranoid Motor Activity: sitting up in bed Cognition: A/O x 3 Insight: poor Judgment: poor Assessment and Plan Impression: Unspecified Psychosis. Today the patient continue to be delusional and paranoid during the assessment.. UDS is negative. DDx: Schizophrenia, R/O Bipolar DO with psychosis Recommendation/Plan: The patient's 1013 was extended. Continue Zyprexa 15 mg PO HS for psychosis. Discussed possible metabolic side effects of Zyprexa. A message was left for legal investigator Dionte Mobley with the [facility] [employer] at [phone]. Dispo: The patient was referred to inpatient psy services. Stafedf with Dr Fallon.
[2018-11-23] MEDS: BABY ASPIRIN PO SCH (14:32)
[2018-11-23] MEDS: LAC-HYDRIN TP SCH (22:19)
[2018-11-24] MEDS: LAC-HYDRIN TP SCH ×3 (08:00→23:46)
[2018-11-24] MEDS: BABY ASPIRIN PO SCH (10:17)
--- NOTE | 2018-11-24 16:17 | Progress Note ---
Subjective - Reason for Consult Consult date: 11/24/18 Reason for consult: Psychiatry Follow-up - Chief Complaint Chief complaint: "I should be able to leave" Patient is a 43-year-old AA female was recently admitted to this hospital and had an extensive cardiac workup. The patient left AMA and returned to ER within 24 hours. Per the record, the patient presents with bizarre behavior. Today the patient continue to be delusional and paranoid during the assessment. The interview had to be terminated, because the patient would interject when she was asked questioned about her mental health. No gestures of SI/HI's. Mental Status Exam - Vital signs Last Vital Signs Temp 98.5 F 11/24/18 08:00 Pulse 93 H 11/24/18 08:00 Resp 18 11/24/18 08:00 BP 119/75 11/24/18 08:00 Pulse Ox 97 11/24/18 08:00 - Exam Narrative exam: MSE: Appearance: calm Behavior: regular eye contact Speech: regular rate and tone Mood: "okay" Affect: congruent to mood Thought Process: circumstantial Thought Content: no gestures of SI/HI's, delusional, paranoid Motor Activity: sitting up in bed Cognition: A/O x 3 Insight: poor Judgment: poor Assessment and Plan Impression: Unspecified Psychosis. Today the patient continue to be delusional and paranoid during the assessment.. UDS is negative. DDx: Schizophrenia, R/O Bipolar DO with psychosis Recommendation/Plan: Continue 1013 and continue Zyprexa 15 mg PO HS for psychosis. Discussed possible metabolic side effects of Zyprexa. A message was left for word processor Dionte Mobley with the [facility] [employer] at [phone]. Dispo: The patient was referred to inpatient psy services. Will staff with Dr Fallon.
[2018-11-25] MEDS: BABY ASPIRIN PO SCH (10:52)
[2018-11-25] MEDS: LAC-HYDRIN TP SCH ×2 (10:52→21:59)
[2018-11-25 11:15] LABS: Basophils % (Auto) 0.4 % (0.0-1.8); Eosinophils # (Auto) 0.2 K/mm3 (0.0-0.4); Eosinophils % (Auto) 3.1 % (0.0-4.3); Hematocrit 37.7 % (30.3-42.9); Hemoglobin 11.9 gm/dl (10.1-14.3); Lymphocytes # (Auto) 1.7 K/mm3 (1.2-5.4); Lymphocytes % (Auto) 26.9 % (13.4-35.0); Mean Corpuscular HGB Conc 32 % (30-34); Mean Corpuscular Volume 80 fl (79-97); Monocytes # (Auto) 0.5 K/mm3 (0.0-0.8); Monocytes % (Auto) 7.3 % (0.0-7.3); Platelet Count 436 K/mm3 (140-440); Red Blood Count 4.71 M/mm3 (3.65-5.03); Red Cell Distribution Width 17.2 % (13.2-15.2)
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
[2018-11-26] MEDS: ATIVAN IM PRN (09:16)
[2018-11-26] MEDS: BABY ASPIRIN PO SCH (11:14)
[2018-11-26] MEDS: LAC-HYDRIN TP SCH ×2 (11:14→23:10)
--- NOTE | 2018-11-26 13:14 | Progress Note ---
Subjective - Reason for Consult Consult date: 11/26/18 Reason for consult: Psychiatry Follow-up - Chief Complaint Chief complaint: "What do you want" Patient is a 43-year-old AA female was recently admitted to this hospital and had an extensive cardiac workup. The patient left AMA and returned to ER within 24 hours. Per the record, the patient presents with bizarre behavior. Today the patient continue to be delusional and paranoid during the assessment. The patient would not talk with me the provider unless we were in view of the camera that's in the hallway. She denies SI/HI's. No indications of side effects of her medication. Mental Status Exam - Vital signs Last Vital Signs Temp 98.1 F 11/26/18 10:31 Pulse 71 11/26/18 10:31 Resp 16 11/26/18 10:31 BP 102/48 11/26/18 10:31 Pulse Ox 100 11/26/18 10:31 - Exam Narrative exam: MSE: Appearance: calm Behavior: regular eye contact Speech: regular rate and tone Mood: "okay" Affect: congruent to mood Thought Process: circumstantial Thought Content: no gestures of SI/HI's, delusional, paranoid Motor Activity: sitting up in bed Cognition: A/O x 3 Insight: poor Judgment: poor Assessment and Plan Impression: Unspecified Psychosis. Today the patient continue to be delusional and paranoid during the assessment.. UDS is negative. The psy team do not not have the collateral to indicate her statements are consistent with reality. DDx: Schizophrenia, R/O Bipolar DO with psychosis Recommendation/Plan: Continue 1013 and continue Zyprexa 15 mg PO HS for psychosis. Discussed possible metabolic side effects of Zyprexa. A message was left for welfare investigator Dionte Mobley with the [facility] [employer] at [phone]. Dispo: The patient was referred to inpatient psy services. Will staff with Dr Fallon.
[2018-11-27] MEDS: BABY ASPIRIN PO SCH (10:30)
[2018-11-27] MEDS: LAC-HYDRIN TP SCH ×2 (10:30→22:30)
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
[2018-11-28 05:01] VITALS: BP 114/70
[2018-11-28] MEDS: ATIVAN IM PRN (08:50)
--- NOTE | 2018-11-28 10:18 | Progress Note ---
Subjective - Reason for Consult Consult date: 11/28/18 Reason for consult: Psychiatry Follow-up - Chief Complaint Chief complaint: "II need to be in front of the camera" Patient is a 43-year-old AA female was recently admitted to this hospital and had an extensive cardiac workup. Per the record, the patient presents with bizarre behavior. Today the patient continue to be delusional and paranoid during the assessment. Overall, there's no change to the patient's presentation. Mental Status Exam - Vital signs Last Vital Signs Temp 98.1 F 11/28/18 01:59 Pulse 76 11/28/18 01:59 Resp 18 11/28/18 01:59 BP 114/70 11/28/18 01:59 Pulse Ox 100 11/28/18 01:59 - Exam Narrative exam: MSE: Appearance: calm Behavior: regular eye contact Speech: regular rate and tone Mood: "okay" Affect: congruent to mood Thought Process: tangential Thought Content: denies SI/HI's, delusional, paranoid Motor Activity: sitting up in bed Cognition: A/O x 3 Insight: poor Judgment: poor Assessment and Plan Impression: Unspecified Psychosis. Today the patient continue to be delusional and paranoid during the assessment.. UDS is negative. The psy team do not not have the collateral to indicate her statements are consistent with reality. DDx: Schizophrenia, R/O Bipolar DO with psychosis Recommendation/Plan: Continue 1013 and continue Zyprexa 15 mg PO HS for psychosis. Discussed possible metabolic side effects of Zyprexa with the patient. Dispo: The patient was accepted at [facility] for inpatient psy services. Will staff with with Dr Fallon.
== END 2018-11-28 09:22 ==
LOC: ED 04:17 → EEVIPCON 04:17 → ED 11-28 09:22
DX: R07.89 Other chest pain (principal); F22 Delusional disorders
CPT/HCPCS: 36415; 71046; 71275; 80048; 80307; 81001; 84484; 85007; 85025; 93005; 93010; 96372; 99285; G0480; J1630; J2060; J7040; Q9967; 80320